=== PATIENT | male | born 1990 | race Caucasian/White ===

== ENCOUNTER → 2019-03-12 | Outpatient (CLI) | payer BC ==
[~2019-03-12] MED LIST: CATAPRES 0.1MG0.1 MG PO; CEPHALEXIN500 M1 PO; NORCO 325 MG-51 TAB PO; ULTRAM ER100 MG PO; ZOLOFT 25MG25 MG
== END ==
LOC: ZLAB.ENT 16:40
DX: Q18.0 Sinus, fistula and cyst of branchial cleft (principal)